=== PATIENT | male | born 1960 | race Two or more races ===

== ENCOUNTER 2020-10-01 10:42 | Emergency (ER) | payer OTHER ==
[~2020-10-01] VITALS: Ht 165.1 cm; Wt 72.6 kg
[2020-10-01 10:44] VITALS: BP 163/91
[2020-10-01] MEDS ORDERED: KETOROLAC TROMETH 60MG/2ML VIAL IM ONE (11:30)
== END 2020-10-01 13:13 | disposition home or self-care (01) ==
LOC: ER 10:42
DX: I71.4 Abdominal aortic aneurysm, without rupture (principal); N20.0 Calculus of kidney; M47.896 Other spondylosis, lumbar region
CPT/HCPCS: 74176; 96372; 99284; J1885; 93005